=== PATIENT | male | born 1995 | race Caucasian/White ===

== ENCOUNTER 2021-01-11 10:48 | Emergency (ER) | payer BC ==
[2021-01-11 11:27] VITALS: BP 150/93; PULSE 88; TEMP 97.5; BMI 18.7
== END 2021-01-11 14:19 | disposition home or self-care (01) ==
LOC: FER 10:48
DX: N48.89 Other specified disorders of penis (principal)
CPT/HCPCS: 36415; 76870-TC; 81003; 87086; 87491; 87591; 99284-25